=== PATIENT | male | born 1975 | race Caucasian/White ===

== ENCOUNTER 2017-11-16 23:49 | Emergency (ER) | payer MEDICAID ==
[2017-11-17] MEDS: LIDOCAINE/MYLANTA 40 ML BTL PO (02:00)
== END 2017-11-17 04:00 | disposition home or self-care (01) ==
LOC: E/R 23:49
DX: R07.89 Other chest pain (principal)
CPT/HCPCS: 93005; 99283-25

== ENCOUNTER 2018-01-06 16:00 | Emergency (ER) | payer OTHER, MEDICAID ==
[2018-01-06] MEDS: DIPHTH/TET/ACEL PERTUSS (ADULT) 0.5 ML VIAL IM* (17:09)
[2018-01-06] MEDS: LIDOCAINE 1% (MDV) 10 ML INJ INJ (17:29)
[2018-01-06] MEDS: SILVER NITRATE SWAB TOP (17:42)
== END 2018-01-06 18:02 | disposition home or self-care (01) ==
LOC: FTE 16:00
DX: S61.216A Laceration without foreign body of right little finger without damage to nail, initial encounter (principal); W26.0XXA Contact with knife, initial encounter; Y92.9 Unspecified place or not applicable; Z23 Encounter for immunization
CPT/HCPCS: 12001; 90471; 90715; 99283-25